=== PATIENT | male | born 1965 | race Caucasian/White ===

== ENCOUNTER 2017-03-02 03:20 | Emergency (ER) | payer OTHER, MEDICAID ==
[~2017-03-02] VITALS: Ht 177.8 cm; Wt 93.0 kg
[~2017-03-02 03:20] MED LIST: ATOR10 PO; ESOM1CAP16
[2017-03-02 03:27] VITALS: BP 152/93; PULSE 86; RESP 18; TEMP 97.8; O2SAT 97
[2017-03-02] MEDS ORDERED: ORPHENADRINE INJ 60 MG/2 ML AMP IM ONE (04:15)
[2017-03-02] MEDS ORDERED: DEXAMETHASONE SOD PHOS 20 MG/5 ML VIAL IM ONE (04:15)
[2017-03-02] MEDS ORDERED: MEDR4PAK PO (04:20)
[2017-03-02] MEDS ORDERED: ROBA750T PO (04:20)
--- NOTE | 2017-03-02 04:21 | PD ---
HPI Chief Complaint: Musculoskeletal Complaint Time Seen by Provider: 04:12 Travel History International Travel<30 days: No Contact w/Intl Traveler<30days: No Traveled to known affect area: No History of Present Illness HPI 51-year-old male presents to the emergency department I private vehicle for complaint of one week of low back pain radiating to the right lower extremity. Patient states she is followed by Dr. Chauhan is his chronic pain management doctor for his chronic back pain. Patient did not call his pain management doctor regarding his back pain and leg pain. Patient also did not call his primary care provider. Patient states he has been given a prescription for ibuprofen and hydrocodone and has a TENS unit has been taking his medications but has had no benefit. Patient denies any saddle anesthesia or bladder or bowel dysfunction but has noted some intermittent tingling in the right lower extremity. Patient denies any weakness or tingling at this time. Patient states came to the emergency room because of pain in his back. Patient reports his symptoms began last week after lifting a 50 pound object. PFSH Past Medical History Narrative Medical dyslipidemia chronic back pain reflex; occasional alcohol use; nursing notes reviewed Heart Rhythm Problems: No Cancer: No Cardiac Catheterization: Yes Cardiovascular Problems: No High Cholesterol: Yes Congestive Heart Failure: No Diabetes: No Patient Takes Glucophage: No Diminished Hearing: No GERD: Yes Hepatitis: No Hypertension: No Respiratory: No Thyroid Disease: No Tetanus Vaccination: < 5 Years ?: Not Past Surgical History Coronary Artery Bypass Graft: No Other Surgery: Yes (DEVIATED SEPTUM REPAIR) Family History Family Myocardial Infarction: Yes (DAD-STENT PLACED AND MOM FROM HEART ATTACK) Social History Alcohol Use: Yes (OCCASIONALLY ) Tobacco Use: No Substance Use: No Allergies-Medications (Allergen,Severity, Reaction): Coded Allergies: No Known Allergies (Verified , 09/02/10) Reported Meds & Prescriptions Reported Meds & Active Scripts Active Reported Esomeprazole Magnesium 40 Mg Cap BID Lipitor (Atorvastatin Calcium) 10 Mg Tab 40 Mg PO HS Review of Systems Except as stated in HPI: all other systems reviewed are Neg General / Constitutional: No: Fever, Chills HENT: No: Congestion Cardiovascular: No: Chest Pain or Discomfort Gastrointestinal: No: Abdominal Pain, Changes in Bowel Habits Genitourinary: No: Dysuria, Incontinence Musculoskeletal: Positive: Myalgias, Arthralgias, Pain (low back pain), No: Weakness Skin: No Rash Neurologic: No: Weakness, Dizziness, Syncope, Focal Abnormalities, Coordination Problem, Paresthesia, Incontinence, Sensory Disturbance Psychiatric: No: Anxiety Hematologic/Lymphatic: No: Easy Bruising Physical Exam Narrative GENERAL: Well-developed well-nourished female in no acute distress no respiratory distress GCS 15 SKIN: Warm and dry. HEAD: Normocephalic. EYES: No scleral icterus. No injection or drainage. NECK: Supple, trachea midline. No JVD or lymphadenopathy. CARDIOVASCULAR: Regular rate and rhythm without murmurs, gallops, or rubs. RESPIRATORY: Breath sounds equal bilaterally. No accessory muscle use. GASTROINTESTINAL: Abdomen soft, non-tender, nondistended. MUSCULOSKELETAL: No cyanosis, or edema. BACK: Tender without obvious deformity to lower lumbar spine and point tender with point reproducible pain over the right SI joint. DTRs 1+ and equal bilaterally no clonus. Motor strength 5 over 5. No CVA tenderness. Data Data Last Documented VS Vital Signs Date Time Temp Pulse Resp B/P (MAP) Pulse Ox O2 Delivery O2 Flow Rate FiO2 03/02/17 03:27 97.8 86 18 152/93 (112) 97 Orders Orders Dexamethasone Inj (Decadron Inj) (03/02/17 04:15) Orphenadrine Inj (Norflex Inj) (03/02/17 04:15) Spine, Lumbar - Ltd (Ap & Lat) (03/02/17 ) [facility] Medical Decision Making Medical Screen Exam Complete: Yes Emergency Medical Condition: Yes Medical Record Reviewed: Yes Differential Diagnosis Sciatica sacroiliitis HNP degenerative joint disease degenerative disc disease compression fracture; no findings by history or on exam at this time to support cauda equina syndrome Narrative Course Patient given injection of Decadron and Norflex imaging studies ordered Diagnosis Primary Impression: Lumbar disc disease Additional Impression: Sciatica of right side Referrals: Pain Management call for appointment Primary Care Physician call for appointment Patient Instructions: General Instructions Med/Other Pt SpecificInfo: Prescription(s) given Scripts Methocarbamol (Robaxin) 750 Mg Tab 750 MG PO Q6HR for Muscle Spasm, #6 TAB 0 Refills Prov: Lindsey Coto MD 03/02/17 Methylprednisolone Dosepak (Medrol Dosepak) 4 Mg Dspk 4 MG PO DIRECTED, #1 DSPK 0 Refills Per Pharmacist direction Prov: Lindsey Coto MD 03/02/17 Disposition: 01 DISCHARGE HOME Condition: Stable Lindsey Coto MD Mar 02, 2017 04:20
[2017-03-02 04:59] VITALS: BP 179/94; PULSE 93; RESP 15; O2SAT 96
--- NOTE | 2017-03-02 05:06 | RADRPT ---
EXAM DATE/TIME: 03/02/2017 04:35 [facility] COMPARISON: SPINE LUMBAR LTD (AP & LAT), February 17, 2009, 12:24. INDICATIONS : Lower back pain. MEDICAL HISTORY : None. SURGICAL HISTORY : None. ENCOUNTER: Initial ACUITY: 1 week PAIN SCORE: 8/10 LOCATION: lumbar spine. FINDINGS: Two view examination was performed. There are five non-rib bearing vertebral bodies. The vertebral bodies are in normal alignment without evidence of subluxation or scoliosis. Mild degenerative disc c hanges are present greatest at the L4-5 level The pedicles are intact. Bony mineralization is normal . No fracture is identified. There is a mild scoliosis. CONCLUSION: 1. Mild degenerative disc change. 2. Mild scoliosis. Robby Garcia MD on March 02, 2017 at 5:03 Board Certified Radiologist. This report was verified electronically.
== END 2017-03-02 05:55 | disposition home or self-care (01) ==
LOC: PHED 03:20
DX: M51.9 Unspecified thoracic, thoracolumbar and lumbosacral intervertebral disc disorder (principal); M54.41 Lumbago with sciatica, right side; E78.00 Pure hypercholesterolemia, unspecified
CPT/HCPCS: 72100; 96372; 99284; J1100; J2360